=== PATIENT | male | born 1985 | race Caucasian/White ===

== ENCOUNTER 2020-10-08 18:04 | Emergency (ER) | payer OTHER ==
[~2020-10-08] VITALS: Ht 180.3 cm; Wt 86.2 kg
[2020-10-08 18:13] VITALS: BP_SYST 154
[2020-10-08] MEDS ORDERED: NACL 0.9% 1,000 ML IV ONE (18:15)
[2020-10-08] MEDS ORDERED: LORazepam 2 MG/ML VIAL IVP ONE (18:15)
[2020-10-08 19:08] LABS: BASOPHILS % (AUTO) 0.3 % (0.0-2.0); EOSINOPHILS % (AUTO) 0.2 % (0.0-4.0); HEMATOCRIT 35.6 % (36-54); HEMOGLOBIN 12.2 g/dL (14.0-18.0); LYMPHOCYTES # (AUTO) 0.4 K/uL (1.0-5.5); LYMPHOCYTES % (AUTO) 9.7 % (20.5-51.5); MEAN CORPUSCULAR HEMOGLOBIN 32 pg (27-31); MEAN CORPUSCULAR HGB CONC 34 % (32-36); MEAN CORPUSCULAR VOLUME 93 fL (79.0-98.0); MONOCYTES # (AUTO) 0.5 K/uL (0.0-1.0); MONOCYTES % (AUTO) 12.9 % (1.7-9.3); NEUTROPHILS # (AUTO) 2.9 K/uL (1.8-7.7); NEUTROPHILS % (AUTO) 76.9 % (40.0-70.0); PLATELET COUNT (AUTO) 133 K/uL (130-430); RED BLOOD CELL COUNT(AUTO) 3.82 MIL/uL (4.2-6.2); RED CELL DISTRIBUTION WIDTH 14.3 % (9.0-15.0); WHITE BLOOD COUNT (AUTO) 3.7 K/uL (4.8-10.8)
[2020-10-08 19:26] LABS: ANION GAP 11 (5-15); CHLORIDE 92 mmol/L (98-107); CREATININE 0.96 mg/dL (0.55-1.30); GLUCOSE 127 mg/dL (70-99); POTASSIUM 3.4 mmol/L (3.5-5.1); SODIUM SERUM 132 mmol/L (136-145); UREA NITROGEN, BLOOD 8 mg/dL (8-21)
[2020-10-08 19:32] LABS: ALANINE AMINOTRANSFERASE 88 U/L (12-78); ALBUMIN 4.1 g/dL (3.4-4.8); ASPARTATE AMINOTRANSFERASE 131 U/L (10-37); TOTAL BILIRUBIN 1.7 mg/dL (0.0-1.0)
[2020-10-08 19:35] LABS: ACETAMINOPHEN < 1 ug/mL (1-30); ALCOHOL, BLOOD < 3 mg/dL (<10); GFR AFRICAN AMERICAN 113 mL/min (>90)
[2020-10-08] MEDS ORDERED: ALPR0.5T PO (19:59)
[2020-10-08 21:15] VITALS: BP_SYST 148
== END 2020-10-08 21:15 | disposition home or self-care (01) ==
LOC: SED 18:04
DX: R56.9 Unspecified convulsions (principal)
CPT/HCPCS: 36415; 70450; 70486; 72125; 76376; 80053; 85025; 93005; 96361; 96374; 99285; G0480; G0481; G0482; J2060; J7030